=== PATIENT | female | born 1965 | race African-American/Black ===

== ENCOUNTER 2022-05-28 10:08 | Emergency (ER) | payer OTHER ==
[2022-05-28 11:02] LABS: Absolute Lymphocytes (CBC) 1.2 K/uL (0.7-4.9); Hematocrit 35.5 % (36.0-45.0); Lymphocytes % 22.6 % (15.3-44.8); MCV 85.6 fL (80-100); MPV 8.8 fL (7.6-11.3); RBC Red Blood Cell Count 4.15 M/uL (3.86-4.86)
[2022-05-28 11:40] LABS: Albumin 3.3 g/dL (3.4-5.0); Bilirubin Direct 0.1 mg/dL (0-0.2); Bilirubin Total 0.3 mg/dL (0.2-1.0); Protein, Total 7.3 g/dL (6.4-8.2); Troponin High Sensitivity 3.8 pg/mL (<58.9)
--- NOTE | 2022-05-28 11:46 | RAD REPORT ---
EXAM DESCRIPTION: RAD - Chest Single View - 05/28/2022 10:45 am CLINICAL HISTORY: dizziness COMPARISON: None TECHNIQUE: AP portable chest image was obtained 05/28/2022 10:45 am . FINDINGS: Lungs are clear. Interstitial pattern not outside of normal range. Heart and vasculature a re normal. No measurable pleural effusion and no pneumothorax. No acute bony abnormality seen. No acu te aortic findings suspected. IMPRESSION: No acute cardiopulmonary process.
[2022-05-28 11:52] LABS: Magnesium 2.1 mg/dL (1.8-2.4); Potassium 4.9 mmol/L (3.5-5.1)
[2022-05-28] MEDS ORDERED: NA CHLORIDE 0.9% 1,000 ML ONE ×2 (12:14→12:46)
--- NOTE | 2022-05-28 14:17 | ER ---
Nurse's Notes [facility] Name: Lanny Beckwith Age: 56 yrs Sex: Female : 1965 Arrival Date: 05/28/2022 Time: 10:10 Bed 18 Private MD: Diagnosis: Dehydration;Rhabdomyolysis-mild Presentation: 05/28 10:11 Chief complaint: EMS states: pt presented to [facility] [place] got [place] heated and syncopal episode. Coronavirus screen: Vaccine status: Patient reports receiving the 2nd dose of the covid vaccine. Ebola Screen: Patient denies travel to an Ebola-affected area in the 21 days before illness onset. Initial Sepsis Screen: Does the patient meet any 2 criteria? No. Patient's initial sepsis screen is negative. Does the patient have a suspected source of infection? No. Patient's initial sepsis screen is negative. Risk Assessment: Do you want to hurt yourself or someone else? Patient reports no desire to harm self or others. Onset of symptoms was May 28, 2022. 10:11 Method Of Arrival: EMS: [facility] sharp 10:11 Acuity: NURIA 3 sharp Triage Assessment: 10:17 General: Appears. General: Behavior is calm, cooperative. sharp 10:24 Pain: Denies pain. sharp Historical: - Allergies: 10:17 No Known Allergies; sharp - Home Meds: 10:17 None [Active]; sharp - PMHx: 10:17 None; sharp - Immunization history:: Adult Immunizations. - Social history:: Smoking status: Patient denies any tobacco usage or history of. Screenin:23 Abuse screen: Denies threats or abuse. Denies injuries from another. Nutritional sharp screening: No deficits noted. Tuberculosis screening: No symptoms or risk factors identified. Fall Risk None identified. Vital Signs: 10:11 BP 123 / 69; Pulse 65; Resp 17; Temp 97.7; Pulse Ox 100% ; Weight 81.65 kg; Height 5 sharp ft. 8 in. (172.72 cm); 10:40 BP 112 / 65 Supine; Pulse 60; sharp 10:40 BP 112 / 60 Sitting; Pulse 63; sharp 10:40 BP 105 / 70 Standing; Pulse 75; sharp 12:12 BP 140 / 79; Pulse 60; Resp 17; Pulse Ox 96% on R/A; sharp 10:11 Body Mass Index 27.37 (81.65 kg, 172.72 cm) sharp ED Course: 10:10 Patient arrived in ED. sharp 10:13 Javi Post NP is PHCP. pm1 10:13 Domo Alba MD is Attending Physician. pm1 10:17 Triage completed. sharp 10:17 Arm band placed on. sharp 10:23 Patient has correct armband on for positive identification. Bed in low position. sharp 10:23 No provider procedures requiring assistance completed. Maintain EMS IV. Gauge \T\ site: sharp 20g lac. 10:27 Nika Adams, GUADALUPE is Primary Nurse. sharp 10:47 XRAY Chest (1 view) In Process Unspecified. EDMS 14:32 IV discontinued, intact. sharp Administered Medications: 12:13 Drug: NS 0.9% 1000 ml Route: IV; Rate: 1000 ml; Site: left antecubital; sharp 12:46 Drug: NS 0.9% 1000 ml Route: IV; Rate: 1 bolus; Site: left antecubital; sharp Medication: 10:24 VIS not applicable for this client. sharp Outcome: 14:16 Discharge ordered by . pm1 14:32 Discharged to home ambulatory. sharp 14:32 Condition: good 14:32 Discharge instructions given to patient. 14:32 Patient left the ED. sharp Signatures: Dispatcher [employer] EDMS Javi Post NP EXECUTIVE SALES MANAGER pm1 Nika Adams, GUADALUPE RN sharp Corrections: (The following items were deleted from the chart) 14:19 10:11 BP 123 / 69; Pulse 65bpm; Resp 17bpm; Pulse Ox 100%; Temp 7.7F; 81.65 kg; Height sharp 5 ft. 8 in.; BMI: 27.3; sharp
--- NOTE | 2022-05-28 14:17 | EDPHYS ---
Physician Documentation [facility] Name: Lanny Beckwith Age: 56 yrs Sex: Female : 1965 Arrival Date: 05/28/2022 Time: 10:10 Bed 18 Private MD: ED Physician Domo Alba HPI: 05/28 12:39 This 56 yrs old Black Female presents to ER via EMS with complaints of Heat exposure, pm1 near syncopal episode. 12:39 The patient has experienced near-syncope, felt faint. Onset: The symptoms/episode pm1 began/occurred just prior to arrival. Duration: This was a single episode. Context: the episode(s) was witnessed, by family, occurred outdoors, occurred while the patient was walking, Just prior to the episode the patient experienced dizziness. Associated injury: The patient did not suffer any apparent associated injury. Associated signs and symptoms: Pertinent negatives: abdominal pain, chest pain, shortness of breath, Focal weakness. Current symptoms: Currently, the patient is not experiencing any symptoms. The patient has not experienced similar symptoms in the past. The patient has not recently seen a physician. 56-year-old patient presents ER with complaints of near syncope while walking outside. Patient has been walking outside daily and she is experiencing a near syncopal episode while she was out in the heat. Patient experiencing dizziness and sat underneath the shade of a tree and felt faint. Historical: - Allergies: 10:17 No Known Allergies; sharp - Home Meds: 10:17 None [Active]; sharp - PMHx: 10:17 None; sharp - Immunization history:: Adult Immunizations. - Social history:: Smoking status: Patient denies any tobacco usage or history of. ROS: 12:39 Constitutional: Negative for fever, chills, and weight loss, Cardiovascular: Negative pm1 for chest pain, palpitations, and edema, Respiratory: Negative for shortness of breath, cough, wheezing, and pleuritic chest pain. 12:39 Abdomen/GI: Negative for abdominal pain, nausea, vomiting, diarrhea, and constipation, Back: Negative for injury and pain, MS/Extremity: Negative for injury and deformity, Skin: Negative for injury, rash, and discoloration. 12:39 Neuro: Positive for dizziness, Negative for headache, numbness, tingling, weakness. 12:39 All other systems are negative. Exam: 12:39 Constitutional: This is a well developed, well nourished patient who is awake, alert, pm1 and in no acute distress. Head/Face: Normocephalic, atraumatic. 12:39 Skin: Warm, dry with normal turgor. Normal color with no rashes, no lesions, and no evidence of cellulitis. MS/ Extremity: Pulses equal, no cyanosis. Neurovascular intact. Full, normal range of motion. 12:39 Eyes: Exam is negative for acute changes, Periorbital structures: appear normal, Pupils: no acute changes, Extraocular movements: no acute changes, Conjunctiva: normal. 12:39 Cardiovascular: Exam negative for acute changes, Rate: normal, Rhythm: regular, Pulses: no pulse deficits are appreciated, Heart sounds: normal, normal S1and S2. 12:39 Respiratory: Exam negative for acute changes, respiratory distress, shortness of breath, Breath sounds: are clear throughout. 12:39 Abdomen/GI: Inspection: abdomen appears normal, Palpation: abdomen is soft and non-tender, in all quadrants. 12:39 Neuro: Exam negative for acute changes, Orientation: is normal, Mentation: is normal, Motor: is normal, moves all fours. Vital Signs: 10:11 BP 123 / 69; Pulse 65; Resp 17; Temp 97.7; Pulse Ox 100% ; Weight 81.65 kg; Height 5 sharp ft. 8 in. (172.72 cm); 10:40 BP 112 / 65 Supine; Pulse 60; sharp 10:40 BP 112 / 60 Sitting; Pulse 63; sharp 10:40 BP 105 / 70 Standing; Pulse 75; sharp 12:12 BP 140 / 79; Pulse 60; Resp 17; Pulse Ox 96% on R/A; sharp 10:11 Body Mass Index 27.37 (81.65 kg, 172.72 cm) sharp MDM: 10:13 Patient medically screened. pm1 14:10 Data reviewed: vital signs. Data interpreted: Pulse oximetry: on room air is 96 %. pm1 Interpretation: normal. Counseling: I had a detailed discussion with the patient and/or guardian regarding: the historical points, exam findings, and any diagnostic results supporting the discharge/admit diagnosis, lab results, the need for outpatient follow up, to return to the emergency department if symptoms worsen or persist or if there are any questions or concerns that arise at home. 05/28 10:24 Order name: Basic Metabolic Panel; Complete Time: 11:54 pm05/28 10:24 Order name: CBC with Diff; Complete Time: 11:04 pm05/28 10:24 Order name: LFT's; Complete Time: 11:54 pm05/28 10:24 Order name: Magnesium; Complete Time: 11:54 pm05/28 10:24 Order name: Troponin HS; Complete Time: 11:54 pm05/28 10:24 Order name: CPK; Complete Time: 11:54 pm05/28 10:24 Order name: XRAY Chest (1 view); Complete Time: 11:54 pm05/28 10:24 Order name: EKG; Complete Time: 10:25 pm05/28 10:24 Order name: Cardiac monitoring; Complete Time: 10:27 pm05/28 10:24 Order name: EKG - Nurse/Tech; Complete Time: 11:22 pm05/28 10:24 Order name: IV Saline Lock; Complete Time: 10:27 pm05/28 10:24 Order name: Labs collected and sent; Complete Time: 10:27 pm05/28 10:24 Order name: O2 Per Protocol; Complete Time: 10:27 pm05/28 10:24 Order name: O2 Sat Monitoring; Complete Time: 10:27 pm05/28 10:24 Order name: Orthostatics; Complete Time: 11:22 pm1 EC:34 Rate is 56 beats/min. Rhythm is regular, Sinus bradycardia with No ectopy. QRS [place] is pm1 Normal. QRS interval is normal. No Q waves. T waves are Normal. No ST changes noted. Clinical impression: Sinus bradycardia. Administered Medications: 12:13 Drug: NS 0.9% 1000 ml Route: IV; Rate: 1000 ml; Site: left antecubital; sharp 12:46 Drug: NS 0.9% 1000 ml Route: IV; Rate: 1 bolus; Site: left antecubital; sharp Disposition Summary: 05/28/22 14:16 Discharge Ordered Location: Home pm1 Problem: new pm1 Symptoms: have improved pm1 Condition: Stable pm1 Diagnosis - Dehydration pm1 - Rhabdomyolysis - mild pm1 Followup: pm1 - With: Emergency Department - When: As needed - Reason: Worsening of condition Followup: pm1 - With: Private Physician - When: 2 - 3 days - Reason: Recheck today's complaints, Continuance of care, Re-evaluation by your physician Discharge Instructions: - Discharge Summary Sheet pm1 - Dehydration, Adult pm1 - Rhabdomyolysis pm1 - Rehydration, Adult pm1 Forms: - Medication Reconciliation Form pm1 - Thank You Letter pm1 - Antibiotic Education pm1 - Prescription Opioid Use pm1 Addendum: 05/30/2022 13:48 Co-signature as Attending Physician, Domo Alba MD I agree with the assessment and c sharp plan of care. Signatures: Dispatcher [employer] EDDomo Arango MD MD cha Marinas, Patrick, DIRECTOR SMB SALES DIRECTOR SMB SALES pm1 Cee-Nika Santamaria RN RN sharp
[2022-05-28 14:37] VITALS: TEMP 97.7
[2022-05-28 14:41] VITALS: BP 140/79; O2SAT 96
--- NOTE | 2022-05-31 12:49 | EKG ---
Test Date: 2022-05-28 Test Time: 10:46:19 Continuous Process Coffee Roaster: MEASUREMENT RESULTS: Intervals: Rate: 56 ND: 144 QRSD: 84 QT: 452 QTc: 436 [place]: P: 36 ND: 144 QRS: 48 T: 57 INTERPRETIVE STATEMENTS: Sinus bradycardia Otherwise normal ECG No previous ECG available for comparison Electronically Signed On 05-31-22 12:45:22 CDT by Hussein Elder
== END 2022-05-28 14:32 | disposition home or self-care (01) ==
LOC: ER 10:08
DX: E86.0 Dehydration (principal); M62.82 Rhabdomyolysis
CPT/HCPCS: 85025; 80048; 36415; 83735; 82550; 80076; 84484; 71045; 99284; J7030 ×2; 93005